=== PATIENT | male | born 1995 | race Native Hawaiian/Other Pacific Islander ===

== ENCOUNTER 2017-07-24 11:19 | Emergency (ER) | payer BC, OTHER ==
[~2017-07-24] VITALS: Ht 167.6 cm; Wt 70.4 kg
[2017-07-24 11:29] VITALS: TEMP 37; Ht 167.6 cm; Wt 70.4 kg
[2017-07-24 12:17] LABS: BASO % 0.1 %; BASO ABS # 0.02 K/uL (0-0.2); COMPLETE YES; EOS % 0.6 %; HEMATOCRIT 40.9 % (42-52); IG% 0.3 %; LYMPH % 24.3 %; MEAN CELL VOLUME 88.1 fL (80-100); MEAN CORPUSCULAR HEMOGLOBIN 30.2 pg (25-34); MEAN CORPUSCULAR HGB CONC 34.2 g/dl (32-36); MEAN PLATELET VOLUME 8.9 fL (7.4-10.4); MONO % 11.1 %; NEUT % 63.6 %; PLATELET COUNT 243 K/uL (130-400); RED BLOOD COUNT 4.64 M/uL (4.7-6.1); WHITE BLOOD COUNT 14.41 K/uL (4.8-10.8)
[2017-07-24 12:29] LABS: BUN/CREATININE RATIO 14.3 (10-20); CALCIUM 9.2 mg/dl (8.5-10.1); CREATININE 1.3 mg/dl (0.60-1.40); POTASSIUM 3.9 mmol/L (3.5-5.1)
--- NOTE | 2017-07-24 14:03 | DIAGNOSTIC IMAGING REPORT ---
ABDOMINAL ULTRASOUND HISTORY: Seroma. COMPARISON: None available at time of interpretation due to PACS downtime. FINDINGS: Note is made of a thin elongated fluid collection within the deep subcutaneous tissues of the anterior abdominal wall, immediately overlying the fascia. The fluid collection measures less than 1 cm in depth and measures 16.4 cm in transverse dimension. This measures approximately 5.7 cm in craniocaudal extent. IMPRESSION: Thin elongated fluid collection of the deep subcutaneous tissues of the anterior abdominal wall which measures approximately 16.4 x 5.7 cm in the transverse and craniocaudal dimensions but less than 1 cm in thickness. Electronically signed by: Fred Majano M.D. 07/24/2017 2:01 PM Dictated Date/Time: 07/24/2017 1:54 PM
[2017-07-24 14:16] VITALS: BP 97/51; PULSE 62; O2SAT 98
[2017-07-24] MEDS ORDERED: LIDO/EPINEPHRINE/SOD BICARB 20 ML VIAL INFIL ONE (15:13)
[2017-07-24] MEDS ORDERED: AMOX875T PO (15:42)
[2017-07-24] MEDS ORDERED: AMOXICILLIN/CLAVULANATE TAB 875 MG TAB PO ONE (15:45)
--- NOTE | 2017-07-24 15:57 | Surgery Consultation ---
Consultation Date of Consultation: Jul 24, 2017. Attending Physician: History of Present Illness pt had a sculpting procedure done in [place] approx 1 month ago...has been dealing with seroma's ever since and had them drained several times. here today for swelling/discomfort in lower abdomen. no fevers. otherwise feeling well. Past Medical/Surgical History Medical Problems: (1) Seroma Status: Acute Family History Diabetes mellitus Social History Smoking Status: Never Smoker Marital Status: single Housing Status: lives with roommate Occupation Status: [employer] student Allergies Coded Allergies: No Known Allergies (Unverified , 11/07/14) Home Medications Scheduled Amoxicillin & Pot Clavulanate (Augmentin 875-125 mg), 875 MG PO BID Review of Systems Abdomen: + pain, + problem reported (known seromas) Physical Exam Date Time Temp Pulse Resp B/P (MAP) Pulse Ox O2 Delivery O2 Flow Rate FiO2 07/24/17 14:16 62 17 97/51 98 Room Air 07/24/17 11:29 37.0 82 18 132/74 96 General Appearance: no apparent distress Head: normocephalic, atraumatic Eyes: EOMI ENT: hearing grossly normal Neck: no JVD Respiratory/Chest: no respiratory distress, no accessory muscle use Abdomen/GI: soft, + pertinent finding (small fluid wave. hematoma at old drainage site. mildly tender diffusely.) Neurologic/Psych: alert, normal mood/affect Skin: warm/dry, no rash Laboratory Results Last 24 Hours Test 07/24/17 12:00 White Blood Count 14.41 K/uL Red Blood Count 4.64 M/uL Hemoglobin 14.0 g/dL Hematocrit 40.9 % Mean Corpuscular Volume 88.1 fL Mean Corpuscular Hemoglobin 30.2 pg Mean Corpuscular Hemoglobin Concent 34.2 g/dl Platelet Count 243 K/uL Mean Platelet Volume 8.9 fL Neutrophils (%) (Auto) 63.6 % Lymphocytes (%) (Auto) 24.3 % Monocytes (%) (Auto) 11.1 % Eosinophils (%) (Auto) 0.6 % Basophils (%) (Auto) 0.1 % Neutrophils # (Auto) 9.17 K/uL Lymphocytes # (Auto) 3.50 K/uL Monocytes # (Auto) 1.60 K/uL Eosinophils # (Auto) 0.08 K/uL Basophils # (Auto) 0.02 K/uL RDW Standard Deviation 40.6 fL RDW Coefficient of Variation 12.7 % Immature Granulocyte % (Auto) 0.3 % Immature Granulocyte # (Auto) 0.04 K/uL Sodium Level 140 mmol/L Potassium Level 3.9 mmol/L Chloride Level 104 mmol/L Carbon Dioxide Level 32 mmol/L Anion Gap 4.0 mmol/L Blood Urea Nitrogen 19 mg/dl Creatinine 1.30 mg/dl Est Creatinine Clear Calc Drug Dose 79.0 ml/min Estimated GFR () 88.5 Estimated GFR (Non- 76.4 BUN/Creatinine Ratio 14.3 Random Glucose 88 mg/dl Calcium Level 9.2 mg/dl Total Bilirubin 0.6 mg/dl Direct Bilirubin 0.2 mg/dl Aspartate Amino Transf (AST/SGOT) 32 U/L Alanine Aminotransferase (ALT/SGPT) 24 U/L Alkaline Phosphatase 49 U/L Total Protein 7.4 gm/dl Albumin 4.1 gm/dl Lipase 156 U/L Assessment & Plan recurrent seroma s/p plastic procedure wbc elevated...? infected clinically looks good aspirated at bedside though very difficult to access b/c it's so thin will put on antibiotics ( augmentin) empirically. fluid sent for culture f/u in office. if recurs may need to send to IR to have a small drain placed.
--- NOTE | 2017-07-24 16:02 | [facility] Operative Report ---
Operative Report Operative Date Jul 24, 2017. Pre-Operative Diagnosis recurrent abdominal wall seroma Post-Operative Diagnosis same Procedure(s) Performed aspiration of abdominal wall seroma Surgeon arnold Findings approx 100 cc's of serous fluid obtained...thin/red fluid. Specimens fluid for cx Anesthesia 1 % lidocaine Complication(s) None Disposition Description of Procedure after informed consent was obtained the pt was placed in supine position. the entire lower abdomen was sterilely prepped/drapped with betadine solution. 1 % lidocaine was used to make 2 skin wheals one on either side of midline over visible fluid pockets. an 18 gauge needle was used to access the fluid pockets. this was quite difficult because of the the very thin nature of the pocket. I was able to obtain approx 100 cc's of thin serous fluid. A sample was sent to the lab for culture/sensitivity. I pushed around the entire lower abdomen to obtain as much fluid as possible. A sterile dressing was applied. He will be discharged with antibiotics. I attest to the content of the Intraoperative Record and any orders documented therein. Any exceptions are noted below.
--- NOTE | 2017-07-24 17:32 | EMERGENCY ROOM VISIT NOTE ---
History Report prepared by Dex: Aretha Champoin Under the Supervision of: Dr. Jabier Choe DGonzálezO. 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 The patient recently moved to the area. He states that 1 month ago he had a "sculpting" surgery done on his lower abdomen by a plastic surgeon in [place]. He states that this procedure is very similar to liposuction. Afterwards he developed a seroma that had to be aspirated twice. It was not infected. Since he moved to the [facility] this has returned and it is painful. He has been unable to find a provider that is willing to drain it. The patient rates his pain as a 6/10 in severity. Pt denies headache, fevers, chest pain, shortness of breath, nausea, vomiting, diarrhea, and pain with urination. 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 A total of 10 systems reviewed and were otherwise negative. Past Medical & Surgical Medical Problems: (1) Altered mental status (2) Concussion (3) Concussion (4) Head injury (5) Headache (6) [id number] (7) Laceration of left eyebrow (8) Nasal bone fracture (9) Nasal laceration (10) Stomach problems Family History Diabetes mellitus Social History Smoking Status: Never Smoker Smokeless Tobacco Use: No Alcohol Use: none Marital Status: in relationship Housing Status: lives with significant other Occupation Status: employed Current/Historical Medications Scheduled Amoxicillin & Pot Clavulanate (Augmentin 875-125 mg), 875 MG PO BID Allergies Coded Allergies: No Known Allergies (Unverified , 11/07/14) Physical Exam Vital Signs Date Time Temp Pulse Resp B/P (MAP) Pulse Ox O2 Delivery O2 Flow Rate FiO2 07/24/17 14:16 62 17 97/51 98 Room Air 07/24/17 11:29 37.0 82 18 132/74 96 Physical Exam GENERAL: alert, sitting up in bed, well appearing, well nourished, no distress, non-toxic EYE EXAM: normal conjunctiva OROPHARYNX: no exudate, no erythema, lips, buccal mucosa, and tongue normal and mucous membranes are moist NECK: supple, no nuchal rigidity, no adenopathy, non-tender LUNGS: Clear to auscultation. Normal chest wall mechanics HEART: no murmurs, S1 normal and S2 normal ABDOMEN: Old drain ports are well-healed in the lower abdomen with bruising and LLQ has a small amount of fluctuance. Abdomen soft, non-tender, normo-active bowel sounds, no rebound or guarding. BACK: Back is symmetrical on inspection and there is no deformity, no midline tenderness, no CVA tenderness. SKIN: no rashes and no bruising UPPER EXTREMITIES: upper extremities are grossly normal. LOWER EXTREMITIES: No pitting edema. NEURO EXAM: Normal sensorium, cranial nerves II-XII grossly intact, normal speech, no gross weakness of arms, no gross weakness of legs. Medical Decision & Procedures ER Provider Diagnostic Interpretation: Radiology results as stated below per my review and the radiologist's interpretation: ABDOMINAL ULTRASOUND HISTORY: Seroma. COMPARISON: None available at time of interpretation due to PACS downtime. FINDINGS: Note is made of a thin elongated fluid collection within the deep subcutaneous tissues of the anterior abdominal wall, immediately overlying the fascia. The fluid collection measures less than 1 cm in depth and measures 16.4 cm in transverse dimension. This measures approximately 5.7 cm in craniocaudal extent. IMPRESSION: Thin elongated fluid collection of the deep subcutaneous tissues of the anterior abdominal wall which measures approximately 16.4 x 5.7 cm in the transverse and craniocaudal dimensions but less than 1 cm in thickness. Electronically signed by: Fred Majano M.D. 07/24/2017 2:01 PM Dictated Date/Time: 07/24/2017 1:54 PM Laboratory Results 07/24/17 12:00 Red Blood Count 4.64, Mean Corpuscular Volume 88.1, Mean Corpuscular Hemoglobin 30.2, Mean Corpuscular Hemoglobin Concent 34.2, Mean Platelet Volume 8.9, Neutrophils (%) (Auto) 63.6, Lymphocytes (%) (Auto) 24.3, Monocytes (%) (Auto) 11.1, Eosinophils (%) (Auto) 0.6, Basophils (%) (Auto) 0.1, Neutrophils # (Auto ) 9.17, Lymphocytes # (Auto) 3.50, Monocytes # (Auto) 1.60, Eosinophils # (Auto ) 0.08, Basophils # (Auto) 0.02 07/24/17 12:00 Test 07/24/17 12:00 White Blood Count 14.41 K/uL (4.8-10.8) Red Blood Count 4.64 M/uL (4.7-6.1) Hemoglobin 14.0 g/dL (14.0-18.0) Hematocrit 40.9 % (42-52) Mean Corpuscular Volume 88.1 fL (80-100) Mean Corpuscular Hemoglobin 30.2 pg (25-34) Mean Corpuscular Hemoglobin Concent 34.2 g/dl (32-36) Platelet Count 243 K/uL (130-400) Mean Platelet Volume 8.9 fL (7.4-10.4) Neutrophils (%) (Auto) 63.6 % Lymphocytes (%) (Auto) 24.3 % Monocytes (%) (Auto) 11.1 % Eosinophils (%) (Auto) 0.6 % Basophils (%) (Auto) 0.1 % Neutrophils # (Auto) 9.17 K/uL (1.4-6.5) Lymphocytes # (Auto) 3.50 K/uL (1.2-3.4) Monocytes # (Auto) 1.60 K/uL (0.11-0.59) Eosinophils # (Auto) 0.08 K/uL (0-0.5) Basophils # (Auto) 0.02 K/uL (0-0.2) RDW Standard Deviation 40.6 fL (36.4-46.3) RDW Coefficient of Variation 12.7 % (11.5-14.5) Immature Granulocyte % (Auto) 0.3 % Immature Granulocyte # (Auto) 0.04 K/uL (0.00-0.02) Anion Gap 4.0 mmol/L (3-11) Est Creatinine Clear Calc Drug Dose 79.0 ml/min Estimated GFR () 88.5 Estimated GFR (Non- 76.4 BUN/Creatinine Ratio 14.3 (10-20) Calcium Level 9.2 mg/dl (8.5-10.1) Total Bilirubin 0.6 mg/dl (0.2-1) Direct Bilirubin 0.2 mg/dl (0-0.2) Aspartate Amino Transf (AST/SGOT) 32 U/L (15-37) Alanine Aminotransferase (ALT/SGPT) 24 U/L (12-78) Alkaline Phosphatase 49 U/L (45-117) Total Protein 7.4 gm/dl (6.4-8.2) Albumin 4.1 gm/dl (3.4-5.0) Lipase 156 U/L (73-393) Laboratory results per my review. Medications Administered Medications (Trade) Dose Ordered Sig/Clementina Route Start Time Stop Time Status Last Admin Dose Admin Lidocaine/ Epinephrine (Buffered Xylocaine/ Epinephrine 1% Inj) 20 ml STK-MED ONCE INFIL 07/24/17 15:13 07/24/17 15:14 DC 07/24/17 15:41 20 ML Amoxicillin/ Clavulanate Potassium (Augmentin Tab) 875 mg ONE ONCE PO 07/24/17 15:45 07/24/17 15:46 DC 07/24/17 16:22 875 MG ED Course ED COURSE: Vital signs were reviewed and showed hypertensive. The patients medical record was reviewed The above diagnostic studies were performed and reviewed. ED treatments and interventions as stated above. 1148: The patient was evaluated in room A11B. A complete history and physical examination was performed. 1448: I discussed the patient's case with Dr. Colmenares of general surgery. He will come to the ED to evaluate the patient. 1454: I updated the patient and he is resting comfortably. 1537: Dr. Colmenares is at the bedside. Please see his note for further details. 1545: Augmentin 875 mg PO 1546: Upon reevaluation, the patient is feeling better and resting comfortably. I discussed my findings with the patient and he understands and agrees with the treatment plan. Based on the patients age, coexisting illnesses, exam and lab findings the decision to treat as an outpatient was made. The patient remained stable while under my care. The patient appeared well at the time of discharge. Medical Decision Differential diagnoses includes but is not limited to gastritis, peptic ulcer disease, GERD, gallbladder disease, pancreatitis, small bowel obstruction, acute coronary syndrome, pericarditis, ischemic bowel, irritable bowel disease, irritable bowel syndrome, appendicitis, diverticulitis, malignancy, hernia, urinary tract infection, torsion, perforation, trauma, infectious. Patient is a 22-year-old male who presents the ER following a surgery 1 month ago on his abdomen which was liposuction. He is from [place] where the surgery was performed. It's been aspirated twice without signs of infection. Vitals today are unremarkable. He has a leukocytosis 14,000. He has no abdominal pain but minimal tenderness over the fluctuance in his left lower quadrant. This was ultrasound and confirmed. Consulted general surgery who evaluated the patient at bedside and drained it. It was sent for culture. He was placed on Augmentin and discharged following evaluation by general surgery. Discussed with Pt concerning signs and symptoms to watch out for. Pt was instructed to follow up with their PCP and discussed with the patient their option to return to the ED at anytime for persistent or worsening symptoms. The appropriate anticipatory guidance and out-patient management, including indications for return to the emergency department, were explained at length to the patient and understood. Medication Reconcilliation Current Medication List: was personally reviewed by me Blood Pressure Screening Patient's blood pressure: Elevated blood pressure Blood pressure disposition: Elevated BP felt to be situational Consults Time Called: 1446 Consulting Physician: Dr. Colmenares Returned Call: [phone] I discussed the patient's case with Dr. Colmenares of general surgery. He will come to the ED to evaluate the patient. Impression Primary Impression: Seroma Scribe Attestation The scribe's documentation has been prepared under my direction and personally reviewed by me in its entirety. I confirm that the note above accurately reflects all work, treatment, procedures, and medical decision making performed by me. Departure Information Dispostion Home / Self-Care Prescriptions Amoxicillin & Pot Clavulanate (Augmentin 875-125 mg) 1 Tab Tab 875 MG PO BID for 10 Days, TAB Prov: Jabier Choe, DO 07/24/17 Referrals No Doctor, Assigned (PCP) Oskar Colmenares D.O. Forms HOME CARE DOCUMENTATION FORM, IMPORTANT VISIT INFORMATION Patient Instructions ED Seroma Post Op, My [facility] Additional Instructions Please follow up with your primary care doctor with in the next 24 hours. Any worsening of your symptoms, please return to the ED immediately. This includes any fevers greater than 100.4, worsening pain, increased swelling, redness of the skin, worsening pain, or any other concerning signs or symptoms from your standpoint.
--- NOTE | 2017-07-29 17:21 | Pharmacy Progress Note ---
ED Pharmacist Culture FollowUp Date of Service: Jul 29, 2017. Called patient regarding aspirate culture with oxacillin-resistant coag negative Staph. Patient reports that Dr. Colmenares called earlier and already prescribed Bactrim, which is appropriate based on reported sensitivities. No further intervention required by ED staff at this time.
== END 2017-07-24 16:30 | disposition home or self-care (01) ==
LOC: C.EDB 11:21 → C.EDA 16:30
DX: L76.34 Postprocedural seroma of skin and subcutaneous tissue following other procedure (principal); Z83.3 Family history of diabetes mellitus